=== PATIENT | female | born 1995 | race American Indian/Alaskan Native ===

== ENCOUNTER 2018-08-28 23:03 | Emergency (ER) | payer OTHER ==
[2018-08-29] MEDS ORDERED: NORCO 5/325 PO STA (00:28)
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
[2018-08-29 02:52] VITALS: BP 111/64
== END 2018-08-29 02:53 | disposition home or self-care (01) ==
LOC: ED 23:03
DX: M54.2 Cervicalgia (principal); M54.89 Other dorsalgia; Z91.09 Other allergy status, other than to drugs and biological substances; V89.2XXA Person injured in unspecified motor-vehicle accident, traffic, initial encounter; Y93.89 Activity, other specified; Y99.8 Other external cause status; Y92.488 Other paved roadways as the place of occurrence of the external cause
CPT/HCPCS: 71046; 72040